=== PATIENT | male | born 1960 | race Caucasian/White ===

== ENCOUNTER 2016-12-12 12:56 | Outpatient (CLI) ==
[2015-07-22 09:34] VITALS: BMI 48.8
--- NOTE | 2016-12-13 01:36 | MRI ---
EXAM: MRI lumbar spine without IV contrast. DATE: 12 December 2016. HISTORY: Low back pain. TECHNIQUE: Sagittal and axial T1W and T2W sequences of the lumbar spine along with sagittal IR and coronal T2W sequences were obtained using 1.2 Nadya magnet. No IV contrast. COMPARISON: LS spine series [address] L-spine 23 March 2015. FINDINGS: There are four classic [id number] lumbar vertebra. At the lumbosacral junction, the re are articulations of the right and left L5 transverse processes with the S1 sacral ala, consisten t with partial sacralization of L5. Mild rotatory leftward curvature of the lumbar spine is observed, with the apex of curvature at L3-4 . There is less lumbar lordosis than seen in the typical spine. No acute lumbar fracture, subluxat ion, osseous malignancy, or pars interarticularis defect is identified. Large osteophytes are visib le at T12-L1, L2-3, and L3-4. Lumbar vertebra are normal in height. T2W/T1W bright, 2.2 x 1.8 x 2. 1 cm lesion in the right side of the T12 vertebral body and a similar 7.6 mm focus in the left side of the L3 body are consistent with a benign hemangiomas. Disc desiccation is noted at T12-L1 throug h L4-5. Minor L2-3, mild L4-5, and moderate to marked L5-S1 disc space narrowing is detected. No sa cral fracture or stress reaction is evident. Bilateral SI joint ankylosis is observed (right greate r than left). Conus medullaris terminates at T12-L1. No cord edema, syrinx, or myelomalacia is dem onstrated . No retroperitoneal lymphadenopathy, paraspinal mass, or aortic aneurysm is detected. Psoas muscles are normal. There is mild bilateral posterior paraspinal muscle atrophy inferiorly. Visible portio ns of the liver, spleen, adrenal glands and kidneys are limited by breathing motion artifacts. T2W bright, T1W isointense, 4 mm focus in the medial cortex midzone left kidney is likely benign cortica l cysts, but not fully characterized. Segmental analysis: T12-L1: Small posterior disc bulge, mild/moderate facet arthropathy and mild ligamentum flavum hype rtrophy cause mild central canal stenosis and mild /moderate bilateral foraminal stenoses. L1-2: Large posterior disc bulge, mild/moderate facet arthropathy, and mild ligamentum flavum hyper trophy cause marked central canal stenosis, and mild /moderate bilateral foraminal stenoses. L2-3: Moderate posterior disc bulge, moderate right facet arthropathy, mild left facet arthropathy, and minor ligamentum flavum hypertrophy cause marked central canal stenosis and mild to moderate na rrowing at the opening to each foramen. L3-4: Small posterior disc bulge, marked facet arthropathy, and slight ligamentum flavum hypertroph y cause moderate central canal stenosis, mild right foraminal stenosis, and marked narrowing of the left foraminal opening. L4-5: Small posterior right foraminal disc bulge (with right foraminal annular fissure), mild right facet arthropathy, moderate left facet arthropathy, and mild ligamentum flavum hypertrophy cause mo derate central canal stenosis and moderate narrowing at the opening to each foramen. Each L4 nerve root appears to contact the disc bulge near the lateral margin of the foramen. L5-S1: Congenitally short pedicles cause mild central canal stenosis. Each foramen is patent. Sacr alization of L5. IMPRESSIONS: 1. Four classic lumbar vertebra, plus sacralization of L5. 2. Lumbar spine mild rotatory levoscoliosis, moderate spondylosis, moderate/marked facet arthropath y, and multilevel DDD. 3. Multilevel foraminal stenoses as described. Each L4 nerve root appears contact disc bulge/osteo phyte near the foramen, and could be sources for pain/radiculopathy. 4. Probable benign hemangiomas at T12 and L3. 5. Left kidney benign cortical cyst (4 mm).
== END 2016-12-12 12:57 | disposition home or self-care (01) ==
LOC: RAD 12:56
PROVIDERS: ATTEND Pediatrics
DX: M54.5 Low back pain (principal)

== ENCOUNTER 2018-02-17 18:23 | Emergency (ER) | payer OTHER ==
[2018-02-17 18:33] VITALS: TEMP 98.6; BMI 51.0
[2018-02-17] MEDS ORDERED: TORADOL IM STA (19:08)
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
[2018-02-17 20:26] VITALS: BP 182/102
== END 2018-02-17 20:15 | disposition home or self-care (01) ==
LOC: ED 18:23
DX: S39.92XA Unspecified injury of lower back, initial encounter (principal); S16.1XXA Strain of muscle, fascia and tendon at neck level, initial encounter; S83.92XA Sprain of unspecified site of left knee, initial encounter; S83.91XA Sprain of unspecified site of right knee, initial encounter; I10 Essential (primary) hypertension; V49.40XA Driver injured in collision with unspecified motor vehicles in traffic accident, initial encounter
CPT/HCPCS: 96372; 99283

== ENCOUNTER 2018-12-18 09:08 | Outpatient (CLI) ==
--- NOTE | 2018-12-18 10:51 | DI ---
EXAM: Three views of the lumbar spine. History: Lower back pain. Comparison: Lumbar spine CT 02/17/2018 Findings: No acute fracture or subluxation of the lumbar spine. Moderate multilevel disc space narr owing with endplate sclerosis and large multilevel osteophyte formation. Severe facet hypertrophy se en within the lower lumbar spine. 5 mm calculus projecting over the right renal shadow. Impression: 1. No acute osseous abnormality of the lumbar spine. 2. Degenerative changes. 3. Right nephrolithiasis
== END 2018-12-18 09:09 | disposition home or self-care (01) ==
LOC: RAD 09:08
PROVIDERS: ATTEND Physician Assistant
DX: M54.5 Low back pain (principal)